=== PATIENT | male | born 2000 | race Caucasian/White ===

== ENCOUNTER 2025-07-28 09:27 | Outpatient (CLI) | payer OTHER, SELFPAY ==
[2025-07-28 09:58] LABS: Hematocrit 50.9 % (42.0-52.0); Hemoglobin 16.9 g/dL (14.0-18.0); Immature Granulocyte Percent A 1.2 % (0-0.5); Immature Reticulocyte Fraction 4.7 % (3.0-15.9); Lymphocytes Absolute Auto 1.39 K/mm3 (0.9-3.2); Mean Corpuscular HGB Conc 33.2 g/dl (32-36); Mean Corpuscular Hemoglobin 27.8 pg (26-34); Mean Corpuscular Volume 83.9 fl (80-100); Nucleated Red Blood Cells Absolute Auto 0.000 K/mm3 (0.0-0.012); Nucleated Red Blood Cells Perc 0.0 % (0.0-0.2); Platelet Count Result 244 k/mm3 (150-375); Red Blood Count 6.07 M/mm3 (4.6-6.20); Reticulocyte Hemoglobin Conten 32.7 pg (28.2-36.6); Reticulocytes Absolute 0.07 10^6/uL (0.02-0.10); White Blood Count 7.4 K/mm3 (4.5-10.0)
--- OUTSIDE RECORDS SUMMARY | 2025-07-28 10:18 | XMS_ITS | Clinical Summary ---
Author Organization [facility] Address [address] [place] [address] Care Team Providers Care Spiral Winding Machine Helper Name Role Phone Margy Hawley CNC MACHINE SETTER Primary Care Provider [phone] Allergies Active Allergy Reactions Criticality Noted Date Comments Amoxicillin Rash Medium 06/22/2020 Azithromycin Rash Medium 06/22/2020 Latex Rash Medium 06/22/2020 Penicillins Rash Medium 09/28/2019 Sulfa (Sulfonamide Antibiotics) Rash Medium 05/26 Medications No known medications Active Problems Problem Noted Date Diagnosed Date Gynecomastia, male 07/11/2020 Overview (07/11/2020): Added automatically from request for surgery [id number] Surgical History Surgery Date Site/Laterality Comments WISDOM TOOTH EXTRACTION 08/25/2018 - 08/24/2019 Medical History Medical History Date Comments Motion sickness Gynecomastia Family History Medical History Relation Name Comments Anesthesia problems Neg Hx Social History Tobacco Use Types Packs/Day Years Used Date Smoking Tobacco: Never Smokeless Tobacco: Never Alcohol Use Standard Drinks/Week Comments Yes 0 (1 standard drink = 0.6 oz pur e alcohol) socially Sex and Gender Information Value Date Recorded Sex Assigned at Not on file Legal Sex Male 7:51 AM CONTROL CHEMIST Gender Identity Not on file Sexual Orientation Not on file Last Filed Vital Signs Vital Sign Reading Time Taken Comments Blood Pressure 145/75 09/05/2020 8:45 AM CONTROL CHEMIST Pulse 100 09/05/2020 8:45 AM CONTROL CHEMIST Temperature 36.3 C (97.3 F) 09/28/2020 1:20 PM CONTROL CHEMIST Respiratory Rate 20 09/05/2020 8:45 AM CONTROL CHEMIST Oxygen Saturation 98% 09/05/2020 8:40 AM CONTROL CHEMIST Inhaled Oxygen Concentration - - Weight 79.4 kg (175 lb) 08/30/2020 2:10 PM CONTROL CHEMIST Height 193 cm (6' 4) 08/30/2020 2:10 PM CONTROL CHEMIST Body Mass Index 21.3 08/30/2020 2:10 PM CONTROL CHEMIST Plan of Treatment Not on file Insurance [facility] Care Teams Spiral Winding Machine Helper Relationship Specialty Start Date End Date Margy Hawley NP [address] [address] PCP - General Nurse Practitioner 07/02/18
--- OUTSIDE RECORDS SUMMARY | 2025-07-28 10:18 | XMS_ITS | Clinical Summary ---
Author Organization [facility] Hailee easley Gen Address [address] [place] [address] Care Team Providers Care Pen And Pencil Repairer Name Role Phone Unavailable Primary Care Provider Unavailabl e Allergies Active Allergy Reactions Criticality Noted Date Comments Penicillins Rash Medium 09/28/2019 Sulfa (Sulfonamide Antibiotics) Rash Medium 05/26 Medications methylphenidat e HCl 27 mg Extended Release tablet Take 1 Tablet by mouth daily. 05/30/20 25 Active Testosterone Enanthate (DELATESTRYL) 200 mg/mL Oil INJECT 1 ML INTRAMUSCULARLY ONCE A WEEK 06/16/20 25 Active Active Problems No known active problems Encounters Date Type Department Care Team Description 07/19/2025 Telephone [facility] Oncology [facility] Hematology [facility] [place] [place] [address] [place] [address] Juan Carlos Dixon MD labs for upcoming appt 07/12/2025 External Device Data STL ABSTRACTION Provider, Abstract 07/12/2025 External Device Data STL ABSTRACTION Provider, Abstract 07/12/2025 External Device Data STL ABSTRACTION Provider, Abstract 07/08/2025 10:30 AM CASE BRIEFER Office Visit [facility] Oncology and Hematology [facility] [place] [place] [address] [place] [address] Love Garcia MD Erythrocytosis (Primary Dx) from Last 3 Months Family History Medical History Relation Name Comments No Known Problems Father No Known Problems Mother Relation Name Status Comments Father Alive Mother Alive Social History Tobacco Use Types Packs/Day Years Used Date Smoking Tobacco: Never Smokeless Tobacco: Never Alcohol Use Standard Drinks/Week Comments Yes 0 (1 standard drink = 0.6 oz pur e alcohol) Socially Sex and Gender Information Value Date Recorded Sex Assigned at Not on file Legal Sex Male 3:55 PM CDT Gender Identity Not on file Sexual Orientation Not on file Last Filed Vital Signs Vital Sign Reading Time Taken Comments Blood Pressure 139/89 07/08/2025 10:44 AM CASE BRIEFER Pulse 65 07/08/2025 10:44 AM CASE BRIEFER Temperature 36.7 C (98.1 F) 07/08/2025 10:44 AM CASE BRIEFER Respiratory Rate 14 07/08/2025 10:4 4 AM CASE BRIEFER Oxygen Saturation 98% 07/08/2025 10: 44 AM CASE BRIEFER Inhaled Oxygen Concentration - - Weight 86.5 kg (190 lb 12.8 oz) 025 10:44 AM CASE BRIEFER Height 193 cm (6' 4) 07/08/2025 10:44 AM CASE BRIEFER Body Mass Index 23.22 07/08/2025 10:44 AM CASE BRIEFER Plan of Treatment Upcoming Encounters Date Type Department Care Team (Late st Contact Info) Description 08/05/2025 11:30 AM CASE BRIEFER Office Visit [facility] Oncology and Hematology - [place] [address] [facility] [address] [place] [address] Juan Carlos Dixon MD [address] [facility] [address] [place] [address] Health Maintenance Due Date Last Done Comments HPV VACCINES (1 - Male 3-dose series) 2016 DTAP/TDAP/TD VACCINES (1 - Tdap) 2020 HEPATITIS B VACCINES (1 of 3 - 19+ 3-dose series) 02/2020 Preventative Visit- Commercial 08/25/2024 INFLUENZA VACCINE (#1) 2025 Insurance [facility] CHOICE [id number] [facility] CHOICE [id number]
--- OUTSIDE RECORDS SUMMARY | 2025-07-28 10:18 | XMS_ITS | Patient Health Record ---
Author Organization [facility] Address [address] [address] Care Team Providers Care A And P Technician Name Role Phone HawleyMargy Primary Care Provider Unavailab Jossue Bull Unavailable [phone] Claudio Milligan Unavailable [phone] Allergies Allergen (clinical drug ingredient) Drug/Non Drug Allergy documented on EMR Reaction Allergy Type Onset Date Status Latex latex (uncoded) Unknown Allergy Acti ve amoxicillin Amoxicillin Unknown Drug Allergy Act sobeida azithromycin Azithromycin Unknown Drug Allergy A ctive Penicillin Unknown Drug Allergy Active Results Component Value Reference Range Notes TSH Reviewed date:02/03/2025 01:23:55 PM Interpretation:normal Performing Lab:[facility] [id number], Phone - [phone], Director - [facility] Notes/Report: TSH 1.620 0.450-4.500 uIU/mL Beta HCG, Serum (Quantitativ e) Reviewed date:02/03/2025 01:23:55 PM Interpretation:normal Performing Lab:[facility], [address] [place] [id number], Phone - [phone], Director - [facility] Notes/Report: hCG,Beta Subunit,Qnt,Serum <1 0-3 mIU/mL R oche ECLIA methodology Alpha-Fetoprotein,Tumor Hood er Reviewed date:02/03/2025 01:23:55 PM Interpretation:normal Performing Lab:[facility], [address] [place] [id number], Phone - [phone], Director - [facility] Notes/Report: AFP, Serum, Tumor Marker <1.8 0.0-5.7 ng/mL [facility] Electrochemiluminescence Immunoassay (ECLIA) . Values obtained with different assay methods or kits cannot be used interchangeably. Results cannot be interpreted as absolute evidence of the presence or absence of malignant disease. . This test is not interpretable in females. Sex Hormone Binding Globulin Reviewed date:02/03/2025 01:23:55 PM Interpretation:normal Performing Lab:[address] [id number], Phone - [phone], Director - [facility] Notes/Report: Sex Horm Binding Glob, Serum 31.3 16.5-55.9 nmol/L FSH AND LH Reviewed date:02/03/2025 01:23:55 PM Interpretation:normal Performing Lab:[address] [id number], Phone - [phone], Director - [facility] Notes/Report: LH 1.8 1.7-8.6 mIU/mL FSH 2.4 1.5-12.4 mIU/mL CBC (H/H, RBC, INDICES, WBC, PLT) Reviewed date:02/03/2025 01:23:55 PM Interpretation:normal Performing Lab:[address] [id number], Phone - [phone], Director - [facility] Notes/Report: WBC 6.0 3.4-10.8 x10E3/uL RBC 6.14 4.14-5.80 x10E6/uL Hemoglobin 16.9 13.0-17.7 g/dL Hematocrit 53.3 37.5-51.0 % MCV 87 79-97 fL MCH 27.5 26.6-33.0 pg MCHC 31.7 31.5-35.7 g/dL RDW 13.1 11.6-15.4 % Platelets 263 150-450 x10E3/uL FERRITIN Reviewed date:02/03/2025 01:23:55 PM Interpretation:normal Performing Lab:[address] [id number], Phone - [phone], Director - [facility] Notes/Report: Ferritin 84 30-400 ng/mL T3, TOTAL Reviewed date:02/03/2025 01:23:55 PM Interpretation:normal Performing Lab:[facility] [id number], Phone - [phone], Director - [facility] Notes/Report: Triiodothyronine (T3) 106 71-180 ng/dL TESTOSTERONE, FREE, LC/MS/MS Reviewed date:02/03/2025 01:23:55 PM Interpretation:317 normal Performing Lab:[facility] [id number], Phone - [phone], Director - [facility] Notes/Report: Testosterone, Total 317 This test was developed and its performance characteristics determined by [facility]. It has not been cleared or approved by the Food and Drug Administration. Reference Range: Adult Males >18 years 264 - 916 This Easiest Credit Card To Get Approved For LC/MS-MS method is currently certified by the [facility] Hormone Standardization Program (HoST). Adult male reference interval is based on a population of healthy nonobese males (BMI <30) between 19 and 39 years old. Bijan, et.al. JCEM 2017,102;3316-2646 PMID: [id number]. % Free Testosterone (Dialysis) 2.1 This test was developed and its performance characteristics determined by [facility]. It has not been cleared or approved by the Food and Drug Administration. Reference Range: Adult Males: 1.5 - 3.2 Free Testosterone, Serum 67 Reference Range: Adult Males: 52 - 280 T4, FREE Reviewed date:02/03/2025 01:23:55 PM Interpretation:normal Performing Lab:[facility] [id number], Phone - [phone], Director - [facility] Notes/Report: T4,Free(Direct) 1.24 0.82-1.77 ng/dL Prolactin, Serum (ICMA) Reviewed date:02/03/2025 01:23:55 PM Interpretation:normal Performing Lab:[facility] [id number], Phone - [phone], Director - [facility] Notes/Report: Prolactin 8.84 Hook effect or prozone effect has been ruled out by performing additional dilution analysis on all prolactin testing. Reference Range: Male Children and Adults: 4.04 - 15.2 ESTRADIOL Reviewed date:02/03/2025 01:23:55 PM Interpretation:normal Performing Lab:[facility], [address] [place], [place] [id number], Phone - [phone], Director - [facility] Notes/Report: Estradiol, Serum, MS 10 This test was developed and its performance characteristics determined by [facility]. It has not been cleared or approved by the Food and Drug Administration. Reference Range: Adult Males: 8.0 - 35 TESTOSTERONE, TOTAL, MS Reviewed date:02/10/2025 10:35:37 AM Interpretation: Performing Lab:[facility], [address] [place], [place] [id number], Phone - [phone], Director - [facility] Notes/Report: Testosterone, Total, LC/MS TNP D uplicate procedure ordered. Reason For Referral No Information Medications Medication SIG (Take, Route, Frequency, Duration) Notes Start Date End Date Status Eletriptan Hydrobromide 20 MG 1 tablet O rally Once a day Active Methylphenidate HCl ER (OSM) 27 MG TAKE 1 TABLET BY MOUTH ONCE DAILY Oral; Duration: 30 Days Active Social History Tobacco Use: Social History Observation Description Date Details (start date - stop date) Never Smoker NA - NA Tobacco Use Question Answer Notes Tobacco use: Nonsmoker Vital Signs Blood pressure diastolic 74 mm Hg 01/27/2025 Height 75.5 in 01/27/2025 Blood pressure systolic 128 mm Hg 01/27/2025 Weight 167.8 lbs 01/27/2025 BMI 20.69 kg/m2 01/27/2025 Encounters Encounter Location Date Provider Diagnosis [facility] [address] [place] [address] 01/27/2025 Claudio Milligan Abnormal blood chemistry R79.9 [facility] [address] [place] [address] 02/15/2025 Jossue Burris Assessments Encounter Date Diagnosis (ICD Code) Assessment Notes Treatment Notes Treatment Clinical Notes Section Notes 01/27/2025 Abnormal blood chemistry (ICD-10 - R79.9) H/o Gynecomastia and high estrogen levels. January 2025: Rule out hypogonadism. No Gynecomastia on exam Plan Of Treatment No Information Insurance Providers Payer Name Payer Address Payer Phone Subscriber Number Group Number Insured Name Patient Relationship to Insured Coverage Start Date Coverage End Date [facility] [address] [address] [place] [address] [id number] Arian Barnhart Child - Insured has Financial Responsibility Medical (General) History Surgical History Surgery Date(Month/Year) Gynecomastia 2019 Hospitalization History Reason Date(Month/Year) See surgical history
[2025-07-28 13:09] LABS: Alanine Aminotransferase 34 U/L (6-50); Albumin Level 4.5 g/dL (3.5-5.1); Alkaline Phosphatase 88 U/L (38-126); Anion Gap 4 mmol/L (4-12); Aspartate Amino Transferase 38 U/L (17-59); Bilirubin,Total 0.5 mg/dL (0.2-1.3); Blood Urea Nitrogen 10 mg/dL (9-20); Calcium 9.4 mg/dL (8.4-10.2); Carbon Dioxide 30 mmol/L (22-30); Chloride 103 mmol/L (98-107); Estimated Glomerular Filt Rate > 60; Glucose 97 mg/dL (65-110); Iron 116 ug/dL (49-181); Potassium 4.3 mmol/L (3.4-5.0); Sodium 137 mmol/L (137-145); Total Protein 7.6 g/dL (6.3-8.2)
[2025-07-28 13:21] LABS: Percent Iron Saturation 28 % (20-50)
[2025-07-28 13:50] LABS: Ferritin 14.80 ng/mL (17.9-464)
== END 2025-07-28 09:28 | disposition home or self-care (01) ==
LOC: ANHLAB 09:34
PROVIDERS: Visit Provider Internal Medicine Hematology & Oncology
DX: D75.1 Secondary polycythemia (principal)
CPT/HCPCS: 36415; 80053; 81256; 82668; 82728; 83540; 83550; 85025; 85046